=== PATIENT | female | born 2000 | race Two or more races ===

== ENCOUNTER 2022-10-14 18:19 | Emergency (ER) | payer OTHER ==
[~2022-10-14] VITALS: Ht 157.5 cm; Wt 54.0 kg
[2022-10-14] MEDS ORDERED: METRONIDAZOLE70 GM VAG (21:34)
[2022-10-14] MEDS ORDERED: BACTRIM DS TAB1 EACH PO (21:34)
== END 2022-10-14 21:37 | disposition home or self-care (01) ==
LOC: ER 18:19
DX: N39.0 Urinary tract infection, site not specified (principal)

== ENCOUNTER 2024-11-16 12:39 | Emergency (ER) | payer OTHER ==
[~2024-11-16] VITALS: Ht 170.2 cm; Wt 62.1 kg
[~2024-11-16 12:39] MED LIST: BACTRIM DS TAB1 EACH PO; METRONIDAZOLE70 GM VAG
[2024-11-16] MEDS ORDERED: GUAIFENESIN 200 MG/10 ML BLIST.PACK PO ONE ×2 (13:57→14:00)
[2024-11-16 14:24] LABS: HEMATOCRIT 34.8 % (36.0-45.00); HEMOGLOBIN 11.7 g/dL (12.0-15.00); MEAN CELL VOLUME 83.9 fL (80.00-100.00); MEAN CORPUSCULAR HEMOGLOBIN 28.3 pg (27.00-32.0); MEAN CORPUSCULAR HGB CONC 33.7 g/dl (32.0-36.0); PLATELET COUNT 278 K/uL (150-450); RED BLOOD COUNT 4.14 M/uL (4.00-6.00); RED CELL DISTRIBUTION WIDTH 15.1 % (11.5-14.5)
[2024-11-16 14:36] LABS: PH,URINE 6.5 (5.0-8.0); URINE APPEARANCE Clear; URINE BILIRRUBIN Negative (NEGATIVE); URINE BLOOD Negative; URINE COLOR Yellow; URINE GLUCOSE Negative (NEGATIVE); URINE KETONE 15 (NEGATIVE); URINE LEUKOCYTE Small; URINE NITRATE Negative; URINE PROTEIN Trace (NEGATIVE)
[2024-11-16 14:37] LABS: URINE BACTERIA 3786.6 uL (0.0-1933); URINE EPITHELIAL CELLS 51.1 uL (0.0-38.8); URINE RBC 9.8 uL (0.0-20.8); URINE WBC 48.2 uL (0.0-23.2)
[2024-11-16 14:41] LABS: URINE CAST 0.29 uL (0.0-1.40)
[2024-11-16 14:56] LABS: COVID-19 AG NEGATIVE (NEGATIVE); INFLUENZA A AG NEGATIVE (NEGATIVE)
== END 2024-11-16 19:51 | disposition home or self-care (01) ==
LOC: ER 12:40
PROVIDERS: General Practice
DX: O23.41 Unspecified infection of urinary tract in pregnancy, first trimester (principal); N39.0 Urinary tract infection, site not specified; O98.511 Other viral diseases complicating pregnancy, first trimester; B34.9 Viral infection, unspecified; Z3A.01 Less than 8 weeks gestation of pregnancy; Z20.822 Contact with and (suspected) exposure to COVID-19